=== PATIENT | male | born 2005 | race Caucasian/White ===

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

== ENCOUNTER 2023-01-02 02:25 | Emergency (ER) | payer OTHER, MEDICAID, SELFPAY ==
[2023-01-02 02:27] VITALS: BP 130/75; PULSE 96; RESP 18; TEMP 38.5; O2SAT 96; BMI 25.2
--- NOTE | 2023-01-02 03:32 | ED.GENADULT ---
HPI - General Adult General Chief complaint: General Medical Stated complaint: Covid positive, difficulty breathing Time Seen by Provider: 01/02/23 03:25 Source: patient Mode of arrival: ambulatory Limitations: no limitations History of Present Illness HPI narrative: Patient partially vaccinated against COVID received only 1 shot of vaccine all family members sick with cold symptoms patient coughing with runny nose for last 3 days feels throat is hurting no significant shortness of breath Related Data Previous Rx's Medication Instructions Recorded benzonatate 200 mg capsule 200 mg PO TID PRN cough #30 caps 01/02/23 dexamethasone 6 mg tablet 6 mg PO DAILY #6 tabs 01/02/23 ibuprofen 600 mg tablet 600 mg PO Q6H PRN fever or pain 01/02/23 #30 tabs Allergies Allergy/AdvReac Type Severity Reaction Status Date / Time No Known Allergies Allergy Verified 04/27/21 12:40 [No Known Allergies*] Review of Systems Review of Systems: Yes all other systems are reviewed and are negative [facility] Past Medical History Medical History No known health problems Social History Social History Alcohol intake: never Advance Directives: No Advance Directives Information Provided: No Physical Exam ED Vital Signs: Vital Signs - 24 hr 01/02/23 02:27 Temperature 101.3 F H Pulse Rate 96 Respiratory Rate 18 Blood Pressure 130/75 Pulse Oximetry 96 BMI result Body Mass Index 25.2 Appearance: Alert. Oriented X3. No acute distress. Eyes: PERRLA, No Nystagmus ENT: Pharynx normal. Oral Mucosa moist rhinorrhea+ Neck: Normal inspection. Neck supple. CVS: Normal heart rate and rhythm. Pulses normal. Respiratory: No respiratory distress. Equal air entry bilateral, no wheezing/rales/rhonchi Abdomen: Soft and nontender. Bowel sounds are present, Skin: Skin warm and dry. Normal skin color. Normal skin turgor. Neuro: Oriented X 3. Medications Administered Discontinued Medications Generic Name Dose Route Start Last Admin Trade Name Freq PRN Reason Stop Dose Admin Dexamethasone 6 mg 01/02/23 03:39 01/02/23 03:50 Dexamethasone 6 Mg Tablet PO 01/02/23 03:40 6 mg ONCE ONE Administration Guaifenesin/Codeine Phosphate 10 ml 01/02/23 03:39 01/02/23 03:50 Guaifen/Codeine Sf 200/20/10ml 10 Ml Liquid PO 01/02/23 03:40 10 ml ONCE ONE Administration Ibuprofen 600 mg 01/02/23 03:39 01/02/23 03:50 Ibuprofen 600 Mg Tablet PO 01/02/23 03:40 600 mg ONCE ONE Administration Medical Decision Making Medical Decision Making [facility] Narrative: Patient with COVID-19 partially vaccinated with cough and sore throat vitals are stable saturating 98% on room air discharge patient home on symptomatic treatment will give a dose of Decadron as patient not vaccinated Discharge Plan Discharge Clinical Impression: COVID-19 Patient Disposition: Home, Self-Care Instructions: COVID-19 (Coronavirus Disease 2019) (ED) Additional Instructions: Social distancing as advised Cough drops, ibuprofen and Decadron as prescribed Report to the ER if increased shortness of breath Prescriptions: New benzonatate 200 mg capsule 200 mg PO TID PRN (Reason: cough) Qty: 30 0RF dexamethasone 6 mg tablet 6 mg PO DAILY Qty: 6 0RF ibuprofen 600 mg tablet 600 mg PO Q6H PRN (Reason: fever or pain) Qty: 30 0RF Interventions: ED Discharge Assessment Last Done: 01/02/23 03:53
[2023-01-02] MEDS: guaiFEN/Codeine SF 200/20/10ML 10 ML LIQUID PO (03:50)
[2023-01-02] MEDS: Ibuprofen 600 MG TABLET PO (03:50)
[2023-01-02] MEDS: dexAMETHasone 6 MG TABLET PO (03:50)
== END 2023-01-02 03:54 | disposition home or self-care (01) ==
PROVIDERS: Emergency Provider Internal Medicine
DX: U07.1 COVID-19 (principal)
CPT/HCPCS: 99283; 99284; J8540

== ENCOUNTER 2024-11-07 09:57 | Outpatient (AMB) | payer OTHER, SELFPAY ==
--- NOTE | 2024-11-07 09:58 | MHC.PC.OV ---
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 Required: No Accompanied by: Self / Same As Patient Allergies No Known Allergies (No Known Allergies*) Allergy (Verified 11/07/24 10:14) Medication List - Last Reconciled 11/07/24 by AMARILIS Bernstein benzonatate 200 mg PO TID PRN dexamethasone 6 mg PO DAILY ibuprofen 600 mg PO Q6H PRN Tobacco use date assessed: 11/07/24 Dental Screening Dental Screen Date: 11/07/24 Did you have a dental visit in the last 12 months?: No Did you have a dental problem in the last 6 months where you did not have access to dental care?: No Was dental information given to patient?: 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 The patient reports having a smaller left kidney, which was identified during a previous evaluation. He does not experience any symptoms related to this condition. The patient was advised to avoid NSAIDs to prevent potential kidney damage. The patient has a family history of diabetes and breast cancer on his mother's side. He is aware of the need for regular monitoring and preventative care measures. [facility] Medical History Kidney atrophy Family history of breast cancer No known health problems Family History Paternal Grandfather Diabetes mellitus Maternal Uncle Diabetes mellitus Maternal Aunt Diabetes mellitus Maternal Grandmother Family history of breast cancer Paternal Grandmother Family history of breast cancer Social History Household Members: Family Housing: House Alcohol intake: current Patient Tobacco Use Status: Never used Tobacco e-Cigarette/Vaping Use: Never Used service: No Current occupational status: employed Current occupation: [employer]. Current occupational exposures/hazards: No Cognitive needs: No Hearing needs: No Vision needs: Yes Questionnaire PHQ-9 Over the last 2 weeks, how often have you been bothered by any of the following problems? 1. Little interest or pleasure in doing things: not at all 2. Feeling down, depressed, or hopeless: not at all 3. Trouble falling or staying asleep, or sleeping too much: several days 4. Feeling tired or having little energy: not at all 5. Poor appetite or overeating: not at all 6. Feeling bad about yourself - or that you are a failure or have let yourself or your family down: not at all 7. Trouble concentrating on things, such as reading the newspaper or watching television: not at all 8. Moving or speaking so slowly that other people could have noticed. Or the opposite - being so fidgety or restless that you have been moving around a lot more than usual: not at all 9. Thoughts that you would be better off or of hurting yourself in some way: not at all Total score: 1 Source: Developed by Drs. Moises Porter, Daksha Adler, Mario Gil and colleagues, with an educational harry from [employer]. Thrive Questionnaire Date Thrive assessed: 11/07/24 I am a: Patient What is your living situation today?: I have a steady place to live Within the past 12 months, did the food you bought not last and you didn't have the money to get more?: Never true Within the past 12 months, did you worry whether your food would run out before you got money to buy more?: Never true Do you have trouble paying for medicines?: No Do you have trouble getting transportation to medical appointments?: No Do you have trouble paying your heating and electricity bill?: No Do you have trouble taking care of your child, family member or friend?: No Do you have trouble with day-to-day activities such as bathing, preparing meals, shopping, managing finances, etc.?: No Are you currently unemployed and looking for a job?: No Are you interested in more education?: No Please select the resources that you would like help with: None Currently or been in a relationship where the following occur: No concerns reported THRIVE Score: 0 AUDIT C Alcohol Use Questionnaire (AUDIT-C) 1. How often do you have a drink containing alcohol?: Monthly or less 2. How many drinks containing alcohol do you have on a typical day when you are drinking?: 1 or 2 3. How often do you have six or more drinks on one occasion?: Never Total Score: 1 CRISTI-7 AMB Questionnaire CRISTI-7 Date CRISTI - 7 assessed: 11/07/24 Feeling nervous, anxious, or on edge: 0 = Not at all Not being able to stop or control worryin = Not at all Worrying too much about different things: 0 = Not at all Trouble relaxin = Not at all Being so restless that it is hard to sit still: 0 = Not at all Becoming easily annoyed or irritable: 0 = Not at all Feeling afraid as if something awful might happen: 0 = Not at all Total CRISTI-7 score (0-4 normal; 5-9 mild; 10-14 moderate; 15-21 severe): 0 Source: Developed by Drs. Moises Porter, Daksha Adler, Mario Gil and colleagues, with an educational harry from [employer]. Review of Systems Const Denies headache(s) Eyes Denies loss of vision ENT Denies vertigo, Denies dizziness, Denies headache(s) and Denies sore throat Card Denies chest pain, Denies leg edema and Denies lightheadedness Resp Denies cough, Denies hemoptysis and Denies wheezing GI Denies abdominal pain, Denies melena, Denies constipation, Denies diarrhea and Denies vomiting Denies dysuria, Denies urinary frequency and Denies urinary urgency Musc Denies arthralgias, Denies joint swelling, Denies numbness and Denies tingling Neuro Denies Abnormal speech present, Denies behavioral changes, Denies vertigo, Denies dizziness, Denies headache(s), Denies loss of vision, Denies memory loss, Denies numbness and Denies tingling Psych Denies anxiety, Denies behavioral changes, Denies depression, Denies memory loss and Denies panic attacks Hemal/Lymph Denies easy bleeding and Denies easy bruising Aller/Immun Denies wheezing Physical exam (Primary Care) Vital Signs: Last Vital Signs Temp 96.8 F 11/07/24 09:59 Pulse 77 11/07/24 09:59 Resp 18 11/07/24 09:59 BP 120/70 11/07/24 09:59 Pulse Ox 97 11/07/24 09:59 Oxygen Delivery Method Room Air 11/07/24 09:59 BMI result Body Mass Index 27.2 Tobacco/Smoking Status: Tobacco use Status Tobacco use date assessed 11/07/24 11/07/24 10:11 Patient Tobacco Use Status Never used Tobacco 11/07/24 10:11 e-Cigarette/Vaping Use Never Used 11/07/24 10:11 PHQ-9: PHQ-9 Score PHQ-9: Total score 1 11/07/24 10:22 Thrive Assessment: Date of Thrive Assessment Date Thrive assessed 11/07/24 11/07/24 10:11 Currently or been in a relationship where the following occur: No concerns reported Const General: healthy appearing, no acute distress, alert and awake Nutritional Appearance: well nourished Orientation/consciousness: oriented to person, oriented to place and oriented to time HENMT Ears: TM's normal bilaterally General nose exam: Normal nasal mucous membranes and turbinates present Eyes Conjunctivae: conjunctivae normal Sclerae: sclerae normal Pupils: Equal, round and reactive pupils present Neck Neck: Yes no lymphadenopathy and Yes no JVD Thyroid: Thyroid normal Carotids: no bruits Resp Effort & Inspection: normal respiratory effort and not tachypneic Auscultation: no crackles, no rales, no rhonchi and no wheezes Cardio Rate: regular rate Rhythm: regular rhythm Heart sounds: no murmurs and normal S1 and S2 GI Palpation (GI): Soft to palpation, nontender, no hepatomegaly and no splenomegaly Auscultation: normal bowel sounds Skin General skin exam: no rashes or lesions noted and dry skin Neuro General: oriented to person, oriented to place and oriented to time Cranial nerves: Yes Equal, round and reactive pupils present Speech: No Abnormal speech present Gait exam (Neuro): Normal gait present Motor exam (neuro): no tremor noted Extrem Right upper extremity: full ROM Left upper extremity: full ROM Right lower extremity: full ROM; no edema Left lower extremity: full ROM; no edema Psych Mental Status: mental status grossly normal Speech and movement: Normal speech and movement present Affect: normal affect Attitude: cooperative Thought process: Normal thought process present Coding Level of Care Code New Pt Prev Care [id number] Diagnoses Encounter to establish care with new provider Z76.89 Kidney atrophy N26.1 Time Spent (min) 36 Assessment & Plan Assessment & Plan (1) Encounter to establish care with new provider: Code(s): Z76.89 - Persons encountering health services in other specified circumstances Category: Medical Plan: Patient is a 18-year-old male that is about to turn 19 about a week. Has been seen [facility]. He is here to establish care with new provider. Labs ordered, we will advise. The patient reports that he is applying to the [employer] and needs a physical. No abnormalities on exam noted. We will wait for the patient past medical records to evaluate his immunization status. (2) Kidney atrophy: Code(s): N26.1 - Atrophy of kidney (terminal) Category: Medical Plan: The patient was born with left kidney atrophy and looking to be referred to a interior design coordinator Orders: Orders Complete Blood Count Auto Diff Today Z00.00 - Encounter for general adult medical examination without abnormal findings Comprehensive [place]. Panel Fast Today Z00.00 - Encounter for general adult medical examination without abnormal findings TSH reflex Free T4 Today Z00.00 - Encounter for general adult medical examination without abnormal findings Vitamin D 25-OH Total Today Z00.00 - Encounter for general adult medical examination without abnormal findings Lipid Panel Today Z00.00 - Encounter for general adult medical examination without abnormal findings UA CC w/rflx Micro + Cult Today Z00.00 - Encounter for general adult medical examination without abnormal findings Referrals Nephrology Referral N26.1 - Atrophy of kidney (terminal)
[2024-11-07 09:59] VITALS: BP 120/70; PULSE 77; RESP 18; TEMP 36; O2SAT 97; BMI 27.2
--- OUTSIDE RECORDS SUMMARY | 2024-11-07 10:51 | XMS_ITS | Clinical Summary ---
Author Organization [facility] Address [address] [place] [address] Care Team Providers Care Airline Attendant Name Role Phone Unavailable Primary Care Provider Unavailabl e Source Comments PLEASE NOTE, if this patient is a minor, it may be UNLAWFUL to discuss sensitive information that is contained in these records (such as FAMILY PLANNING, MENTAL HEALTH or SUBSTANCE ABUSE) with the minor patient's parent or other person without the patient's specific authorization.[facility] Immunizations Immunization Administration Dates Next Due PFIZER COVID VACCINE, PURPLE CAP, 12+ 10/24/2020 ,10/03/2020 Social History Tobacco Use Types Packs/Day Years Used Date Smoking Tobacco: Never Assessed Social Connections Answer Date Recorded Social Connections and Isolation 0 10/03/2020 Financial Resource Strain Answer Date R ecorded Financial Resource Strain 0 2020 Stress Answer Date Recorded Stress 0 10/03/2020 Physical Activity Answer Date Recorded Physical Activity 0 10/03/2020 Food Insecurity Answer Date Recorded Food 0 10/03/2020 Transportation Needs Answer Date Record ed Transportation 0 10/03/2020 Housing Stability Answer Date Recorded Housing 0 10/03/2020 Safety and Environment Answer Date Alex rded Safety 0 10/03/2020 Utilities Answer Date Recorded Utilities 0 10/03/2020 Employment Answer Date Recorded Employment 0 10/03/2020 Sex and Gender Information Value Date Recorded Sex Assigned at Not on file Legal Sex Male 12:54 PM PDT Gender Identity Not on file Sexual Orientation Not on file Plan of Treatment Health Maintenance Due Date Last Done Comments Anxiety Screening 2003 Hepatitis C Screening 2003 Tobacco Screening 2003 Imm-MMR (1 of 1 - Standard series) 11/15/2004 Imm-Varicella (1 of 2 - 13+ 2-dose series) 11/15/2016 HIV Screening 11/15/2018 Imm-HPV (1 - Male 3-dose series) 11/15/2018 Hypertension Screening (#1) 11/15/2021 Imm-DTaP/Tdap/Td (1 - Tdap) 11/15/2022 Imm-Hepatitis B (1 of 3 - 19 + 3-dose series) 11/15/2022 [id number] (3 - 2023- season) 2023 10/24/2020, 10/03/2020 Alcohol and Drug Screen 03/23/2024 Depression Annual Screen 03/23/2024 Imm-Influenza (#1) 2024 Imm-Hepatitis A Aged Out No longer el igible based on patient's age to complete this topic Insurance [facility]
--- OUTSIDE RECORDS SUMMARY | 2024-11-07 10:51 | XMS_ITS ---
Author Name [facility] Organization Unknown Allergies Allergen Reaction Severity Comment Documented Date Source Statu s OTHER (ENVIRONMENTAL) 09/15/2017 [facility] active Problems Problem Status Onset Date Problem Type Date of Resoluti on Source Unilateral small kidney active 2018-05-[address] [facility] Vesicoureteral reflux with unilateral reflux nephropathy active 2018-05-[address] [facility] Encounters Encounter Type Encounter Reason Primary Diagnosis Location Date Ambulatory [facility] 01/26/2022 Ambulatory [facility] 01/15/2022 Care Team Organization Name Specialty Phone Email Start Date End [facility] DAWIT DELGADILLO Primary Care 01/29/2022
--- OUTSIDE RECORDS SUMMARY | 2024-11-07 10:51 | XMS_ITS | Clinical Summary ---
Author Organization [facility] ity Address [address] [place] [address] Care Team Providers Care Head Host/Hostess Name Role Phone Unavailable Primary Care Provider Unavailabl e Social History Tobacco Use Types Packs/Day Years Used Date Smoking Tobacco: Never Assessed Sex and Gender Information Value Date Recorded Sex Assigned at Not on file Legal Sex Male 3:58 AM EST Gender Identity Not on file Sexual Orientation Not on file Plan of Treatment Health Maintenance Due Date Last Done Comments Varicella Vaccines (1 of 2 - 13+ 2-dose series) 11/15/2016 HPV Vaccines (1 - Male 3-dos e series) 11/15/2018 Meningococcal B Vaccine (1 o f 2 - Standard) 2019 DTaP,Tdap,and Td Vaccines (1 - Tdap) 11/15/2022 Hepatitis B Vaccines (1 of 3 - 19+ 3-dose series) 11/15/2022 COVID-19 Vaccine (1 - 2023-2 5 season) 2023 Depression Screening 03/23/2024 Influenza Vaccine (#1) 2024 HIB Vaccines Aged Out No longer eligi ble based on patient's age to complete this topic Hepatitis A Vaccines Aged Out No long er eligible based on patient's age to complete this topic IPV Vaccines Aged Out No longer eligi ble based on patient's age to complete this topic MMR Vaccines Aged Out No longer eligi ble based on patient's age to complete this topic Meningococcal ACWY Vaccine Aged Out N o longer eligible based on patient's age to complete this topic Pneumococcal Vaccine: Pediat rics (0 to 5 Years) and At-Risk Patients (6 to 49 Years) Aged Out No longer eligible b ased on patient's age to complete this topic RSV Immunization Patients Un rafael 20 months Aged Out No longer eligible b ased on patient's age to complete this topic
== END 2024-11-07 10:32 | disposition home or self-care (01) ==
LOC: HO.HMCH 09:58
DX: Z00.00 Encounter for general adult medical examination without abnormal findings (principal); N26.1 Atrophy of kidney (terminal)

== ENCOUNTER 2024-11-23 13:34 | Outpatient (REF) | payer OTHER, SELFPAY ==
[2024-11-23 18:08] LABS: Anion Gap 14 (12-20); Blood Urea Nitrogen 13 mg/dL (9-16); Calcium 9.7 mg/dL (8.4-10.2); Carbon Dioxide 26 mmol/L (22-29); Chloride 105 mmol/L (96-108); Estimated Glomerular Filt Rate > 60; Microalbum/Creatinine Ratio Ur 21.7 ug/mg cr (<30); Potassium 3.8 mmol/L (3.3-5.1); Sodium 141 mmol/L (135-145); Total Protein Urine Random < 7 mg/dL (<12)
[2024-11-23 18:12] LABS: Appearance Urine Clear; Glucose Urine UA Negative (Negative); PH 6.0 (5.0-9.0); Specific Gravity - Urine 1.015 (1.005-1.025); UMIC TRIGGER UA YES
[2024-11-24 08:13] LABS: HBS Num1 1.17 mIU/mL (0-7.99); HBc Num1 0.08 S/CO (0.00-0.79); HBsAGNum1 0.63 S/CO (0.00-0.99); HIV Num 1 0.07 S/CO (0.00-0.99); Hepatitis B Surface Antigen Negative (Negative); ~HepC Num1 0.17 S/CO (0.00-0.79); ~Hepatitis B Surface Antibody NONREACTIVE (Nonreactive); ~Hepatitis C Antibody Nonreactive (Nonreactive)
[2024-11-29 16:43] LABS: Anti Nuclear Antibody Pattern Nuclear, Speckled; Anti Nuclear Antibody Screen POSITIVE (NEGATIVE); Anti Nuclear Antibody Titer 1:40 titer
== END 2024-11-23 13:35 | disposition home or self-care (01) ==
LOC: HO.HKASLDS 13:34
PROVIDERS: Visit Provider Internal Medicine Critical Care Medicine
DX: N26.1 Atrophy of kidney (terminal) (principal); Z01.84 Encounter for antibody response examination
CPT/HCPCS: 36415; 80048; 81001; 82043; 82570; 84156; 86038; 86039; 86704; 86706; 86803; 87340; 87389

== ENCOUNTER 2024-11-23 13:34 | Outpatient (AMB) | payer OTHER, SELFPAY ==
--- OUTSIDE RECORDS SUMMARY | 2009-02-20 20:00 | XMS_ITS | Continuity of Care Document ---
Author Organization [facility] Address [address] [place] [address] Phone Care Team Providers Care Mimeograph Operator Name Role Phone Unavailable Unavailable Unavailable Allergies, Adverse Reactions, Alerts Substance Reaction Status Criticality pineapple Active No Information Procedures Procedure Date DEVELOPMENTAL TEST, HERRERA Advance Directives Directive Yes / No Effective Date File Name No Information Encounters Encounter Description Practice Location Reason(s) For Visit Diagnoses Date Provider Providers Copied on Encounter [facility], [address] [place] [address],[address], [id number], tel:[phone] NEED FOR PROPHYLACTIC VACCINATION AND INOCULATION, INFLUENZA 9 No Information candice [facility], [address] [place] [address],[place] [address], [place], [place], [id number], [place] tel:[phone] Unspecified mental or behavioral problem 9 No Information candice [facility], [address] [place] [address],[place] [address], [place], [place], [id number], tel:[phone] [facility] No Information 9 No Information Family History Family Member Type Diagnosis Age At Onset No Information Immunizations Vaccine Date Status Comments H1N1 INJECTION administered Source: New I mmunization Record INFLUENZA VACCINE AGE 3 AND ABOVE administered Source: New Immuniza tion Record Polio (Injection) administered Source: Ne w Immunization Record Varicella (Chicken Pox) administered Sour ce: New Immunization Record Diph Tetanus ascell Pertussis administere d Source: New Immunization Record Measles Mumps Rubella administered Source : New Immunization Record Diph Tetanus ascell Pertussis administere d Source: New Immunization Record PREVNAR (PCV7) administered Source: New I mmunization Record Hemophilus Influenza B administered Sourc e: New Immunization Record Varicella (Chicken Pox) administered Sour ce: New Immunization Record Measles Mumps Rubella administered Source : New Immunization Record Diph Tetanus ascell Pertussis administere d Source: New Immunization Record Polio (Injection) administered Source: Ne w Immunization Record PREVNAR (PCV7) administered Source: New I mmunization Record Hepatitis B (a) CHILD administered Source : New Immunization Record PREVNAR (PCV7) administered Source: New I mmunization Record Hepatitis B (a) CHILD administered Source : New Immunization Record Polio (Injection) administered Source: Ne w Immunization Record Hemophilus Influenza B administered Sourc e: New Immunization Record Diph Tetanus ascell Pertussis administere d Source: New Immunization Record Hepatitis B (a) CHILD administered Source : New Immunization Record Diph Tetanus ascell Pertussis administere d Source: New Immunization Record Hemophilus Influenza B administered Sourc e: New Immunization Record Polio (Injection) administered Source: Ne w Immunization Record PREVNAR (PCV7) administered Source: New I mmunization Record Payers Payer name Insurance type Covered green party ID Authoriza tion(s) No Information Social History Type Description Quantity Date Captured Comments Sex Male Smoking Status No Information Chief Complaint And Reason For Visit No Information Reason For Referral Reason For Referral No Information History Of Present Illness Encounter Date Complaint History Of Prese nt Illness No Information Functional Status Date Functional Assessmen t No Information Instructions Date Instruction Additional Infor mation No Information Assessments Type Assessment Date No Information Patient Care Teams Name Effective Dates (start - stop) Status Members No Information
[2024-11-23 13:41] VITALS: BP 122/78; PULSE 63; O2SAT 98; BMI 27.4
--- NOTE | 2024-11-23 13:41 | HO.NEPHOV_ITS ---
Vital Signs 11/23/24 13:41 Height 5 ft 10 in Weight 191 lb BMI 27.4 BP 122/78 Blood Pressure Location Lt brachial Position Sitting Pulse 63 Pulse Source Pulse Oximeter Pulse Oximetry (%) 98 Oxygen Delivery Method Room Air Intake Visit Reasons: INP: Atrophy of kidney (terminal)-Conf Procurement Accountant Required: No Accompanied by: Self / Same As Patient Allergies No Known Allergies (No Known Allergies*) Allergy (Verified 11/23/24 13:43) HPI Comments Details: 19 years young male recently transitioned from pediatric care to [facility] was seen by primary care physician for routine health checkup. 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 He was recently seen primary care for physical examination for joining [employer]. He is referred here for follow-up care. He is young, healthy, plays basket ball and asymptomatic [facility] Medical History Kidney atrophy Family history of breast cancer No known health problems Family History Paternal Grandfather Diabetes mellitus Maternal Uncle Diabetes mellitus Maternal Aunt Diabetes mellitus Maternal Grandmother Family history of breast cancer Paternal Grandmother Family history of breast cancer Social History Household Members: Family Housing: House Alcohol intake: current Patient Tobacco Use Status: Never used Tobacco e-Cigarette/Vaping Use: Never Used service: No Current occupational status: employed Current occupation: [employer], [employer] Current occupational exposures/hazards: No Cognitive needs: No Hearing needs: No Vision needs: Yes Review of Systems Const Details: Const : no body aches, no chills Eyes: no blurry vision and no change in vision ENT: no bleeding gums and no change in voice, no dizziness Card: no chest pain, no shortness of breath, no orthopnea, no PND Resp: no cough, no excessive phlegm production, no SOB GI: no abdominal pain and no nausea, no vomiting : no hematuria, no urinary frequency and no difficulty voiding Musc: no abnormal gait, no bone pain Neuro: no abnormal movements, no weakness, no dizziness, no abnormal gait and no behavioral changes Psych: no behavioral changes and no change in appetite Endo: no excessive sweating and no fatigue Physical Exam Vital Signs: Last Vital Signs Pulse 63 11/23/24 13:41 BP 122/78 11/23/24 13:41 Pulse Ox 98 11/23/24 13:41 Oxygen Delivery Method Room Air 11/23/24 13:41 BMI result Body Mass Index 27.4 General: young healthy male not in any acute distress, comfortable, sitting on the chair Nutritional Appearance: well nourished and normal weight Eyes: normal position, no icterus Neck: No lymphadenopathy, no thyromegaly Resp: bilateral air entry equal, no added sounds present Cardio: normal S1, S2 heard, no murmur heard, no edema GI: soft, nontender, no guarding, no hepatosplenomegaly : bladder normal to inspection, bladder normal to palpation, no renal angle tenderness Skin: no rashes or lesions noted and elasticity normal Neuro: oriented to person, oriented to place, oriented to time and moves all extremities Assessment & Plan Assessment & Plan (1) Kidney atrophy: Code(s): N26.1 - Atrophy of kidney (terminal) Category: Medical Plan: Atrophic left kidney: - no history of recurrent UTI or fever to suggest reflux Nephropathy or chronic pyelonephritis - no history of kidney stones or flank pain - history of trauma or surgery - will get plasma renin aldosterone activity, renal ultrasound with Doppler to rule out any vascular disease eventually leading to non-functional kidney with no renin secretion. - will also get urinalysis to look for chronic infections. - advised him to avoid NSAIDs, he is a nonsmoker, advised him to avoid red meat. will followup in a yea with repeat labs. Orders: Orders Basic Metabolic Panel Today N26.1 - Atrophy of kidney (terminal) Microalbumin, Random (w Creat) Today N26.1 - Atrophy of kidney (terminal) Creatinine Urine Today N26.1 - Atrophy of kidney (terminal) UA and rflx microscopic 1 Year N26.1 - Atrophy of kidney (terminal) Creatinine Urine 1 Year N26.1 - Atrophy of kidney (terminal) UA and rflx microscopic Today N26.1 - Atrophy of kidney (terminal) Total Protein Urine Random Today N26.1 - Atrophy of kidney (terminal) Hepatitis B,C Profile Today N26.1 - Atrophy of kidney (terminal) HIV Ab/Ag Today N26.1 - Atrophy of kidney (terminal) GENESIS Reflex Titer and Pattern Today N26.1 - Atrophy of kidney (terminal) US renal BI Today N26.1 - Atrophy of kidney (terminal) Basic Metabolic Panel 1 Year N26.1 - Atrophy of kidney (terminal) Microalbumin, Random (w Creat) 1 Year N26.1 - Atrophy of kidney (terminal) Total Protein Urine Random 1 Year N26.1 - Atrophy of kidney (terminal) Coding Level of Care Code New Pt Level 4 (14886) Diagnoses Kidney atrophy N26.1
--- OUTSIDE RECORDS SUMMARY | 2024-11-23 15:48 | XMS_ITS | Clinical Summary ---
Author Organization [facility] Address [address] [place] [address] Care Team Providers Care Perinatal Nurse Name Role Phone Unavailable Primary Care Provider [...] Hepatitis C Screening 2003 Tobacco Screening 2003 Imm-Varicella (1 of 2 - 13+ 2-dose series) 11/15/2016 HIV Screening 11/15/2018 Imm-HPV (1 - Male 3-dose series) 11/15/2018 Hypertension Screening (#1) 11/15/2021 Imm-DTaP/Tdap/Td (1 - Tdap) 11/15/2022 Imm-Hepatitis B (1 of 3 - 19 + 3-dose series) 11/15/2022 Alcohol and Drug Screen 03/23/2024 Depression Annual Screen 03/23/2024 [id number] ( - 2024- season) 2024 10/24/2020, 10/03/2020 Imm-Influenza (#1) 2024 Imm-Hepatitis A Aged Out No longer el igible based on patient's age to complete this topic Insurance [facility]
--- OUTSIDE RECORDS SUMMARY | 2024-11-23 15:48 | XMS_ITS | Clinical Summary ---
Author Organization [facility] ity Address [address] [place] [address] Care Team Providers Care Quality Assurance/R&D Lab Technician Name Role Phone Unavailable Primary Care Provider Unavailabl e Social History Tobacco Use Types Packs/Day Years Used Date Smoking Tobacco: Never Assessed Sex and Gender Information Value Date Recorded Sex Assigned at Not on file Legal Sex Male 3:58 AM EST Gender Identity Not on file Sexual Orientation Not on file Plan of Treatment Health Maintenance Due Date Last Done Comments HPV Vaccines (1 - Male 3-dos e series) 11/15/2018 Meningococcal B Vaccine (1 o f 2 - Standard) 2019 DTaP,Tdap,and Td Vaccines (1 - Tdap) 11/15/2022 Hepatitis B Vaccines (1 of 3 - 19+ 3-dose series) 11/15/2022 Depression Screening 03/23/2024 COVID-19 Vaccine (1 - 2023-2 5 season) 2024 10/24/2020, 10/03/2020 Influenza Vaccine (#1) 2024 HIB Vaccines Aged [...] age to complete this topic Pneumococcal Vaccine: Pediatrics (0 to 5 Years) and At-Risk Patients (6 to 49 Years) Aged Out No longer eligible b ased on patient's age to complete this topic RSV Immunization Patients Under 20 months Aged Out No longer eligible b ased on patient's age to complete this topic Varicella Vaccines Aged Out No longer eligible based on patient's age to complete this topic
== END 2024-11-23 14:03 | disposition home or self-care (01) ==
LOC: HO.HKAS 13:35
PROVIDERS: Visit Provider Internal Medicine Critical Care Medicine
DX: N26.1 Atrophy of kidney (terminal) (principal)
CPT/HCPCS: 99204

== ENCOUNTER 2025-03-17 09:47 | Outpatient (REF) | payer OTHER, SELFPAY ==
--- NOTE | ~2025-03-17 | US_ITS ---
EXAMINATION: US KIDNEY BILATERAL HISTORY: N26.1 - Atrophy of kidney (terminal) TECHNIQUE: Real-time grayscale ultrasound imaging of the kidneys was performed and images were reviewed. COMPARISON: There are no prior studies available for comparison. FINDINGS: Right kidney: The right kidney measures 5.9 x 2.3 x 2.5 cm. There is renal cortical thinning. There are no masses. There is no hydronephrosis or renal calculi. Left Kidney: The left kidney measures 12.3 x 6.0 x 5.5 cm. Renal parenchymal echotexture and thickness are normal. There are no masses. There is no hydronephrosis or renal calculi. US/US renal BI IMPRESSION: Atrophic right kidney. The left kidney is unremarkable. Electronically signed by: Moises Rivas MD 03/17/2025 10:07 AM ORALIA ALEJANDRO
--- OUTSIDE RECORDS SUMMARY | 2025-03-17 09:49 | XMS_ITS | Clinical Summary ---
Author Organization [facility] 's Address [address] [place] [address] Care Team Providers Care Equipment Detailer Name Role Phone René Sharp MD Primary Care Provider [phone] Source Comments Please note that some or all of the patient's information could have additional privacy protections. State laws allow health care providers to render certain types of treatment to minors without parental consent. Please do not assume that this information can be shared solely by obtaining just the consent of the patient's parent/guardian. Please determine if all or part of the patient's care was rendered without parent/guardian involvement. And, if so, obtain the minor's consent prior to disclosure.[facility]'s Allergies Active Allergy Reactions Criticality Noted Date Comments Other (Environmental) 09/15/2017 Medications No known medications Active Problems Problem Noted Date Diagnosed Date Unilateral small kidney 05/05/2018 Vesicoureteral reflux with unilateral reflux nep hropathy 05/05/2018 Family History Medical History Relation Name Comments Vesicoureteral reflux Cousin Relation Name Status Comments Cousin Social History Tobacco Use Types Packs/Day Years Used Date Smoking Tobacco: Never Smokeless Tobacco: Never Other Needs Answer Date Recorded Anything else about your child you'd like help w [facility]? Not on file 12/05/2022 Share good news about positive changes: Not on f ile 12/05/2022 Sex and Gender Information Value Date Recorded Sex Assigned at Not on file Legal Sex Male 2:44 PM EST Gender Identity Not on file Sexual Orientation Not on file Last Filed Vital Signs Vital Sign Reading Time Taken Comments Blood Pressure 125/77 01/23/2022 2:58 PM EDT Pulse 58 01/23/2022 2:58 PM EDT Temperature - - Respiratory Rate - - Oxygen Saturation 98% 01/23/2022 2:58 PM EDT Inhaled Oxygen Concentration - - Weight 76.2 kg (167 lb 15.9 oz) 01/23/2022 2:58 PM EDT Height 190.5 cm (6' 3 ) 01/23/2022 2:58 PM EDT Body Mass Index 21 01/23/2022 2:58 PM EDT Plan of Treatment Health Maintenance Due Date Last Done Comments DTaP/TDAP/TD VACCINES (1 - Tdap) 11/15/2010 ADOLESCENT HIV SCREENING 11/15/2016 COVID-19 Vaccine (3 - season) 2024 10/24/2020, 10/03/2020 INFLUENZA (#1) 2024 NIRSEVIMAB VACCINES UNDER 8 MONTHS Aged Out No longer eligible b ased on patient's age to complete this topic Insurance [facility] MEDICAID Care Teams Equipment Detailer Relationship Specialty Start Date End Date René Sharp MD PCP - General 05/03/18
--- OUTSIDE RECORDS SUMMARY | 2025-03-17 09:49 | XMS_ITS | Clinical Summary ---
Author Organization [facility] ity Address [address] [place] [address] Care Team Providers Care Upset Operator Name Role Phone Unavailable Primary Care Provider [...] series) 11/15/2022 Depression Screening 03/23/2024 COVID-19 Vaccine (3 - 2024-2 6 season) 2024 10/24/2020, 10/03/2020 Influenza Vaccine (#1) 2024 RSV Immunization Adult Patients (1 - 1-dose 75+ series) 11/15/2078 HIB Vaccines Aged Out No longer eligi [...]
== END 2025-03-17 09:48 | disposition home or self-care (01) ==
LOC: HO.US 09:47
PROVIDERS: Visit Provider Internal Medicine Critical Care Medicine
DX: N26.1 Atrophy of kidney (terminal) (principal)
CPT/HCPCS: 76775

== ENCOUNTER → 2025-03-17 09:48 | Outpatient (BNV) | payer OTHER, SELFPAY | PROVIDERS: Visit Provider Radiology Diagnostic Radiology | DX: N26.1 Atrophy of kidney (terminal) (principal) | CPT/HCPCS: 76775 ==